=== PATIENT | female | born 1980 | race Caucasian/White ===

== ENCOUNTER 2017-05-13 12:58 | Emergency (ER) | payer OTHER ==
[~2017-05-13] VITALS: Ht 160 cm; Wt 85.0 kg
[2017-05-13 13:15] VITALS: BP 130/81; PULSE 92; O2SAT 99
--- NOTE | 2017-05-13 15:17 | ED.REPORT ---
HPI-Abd Pain F Under 40 Date of Service May 13, 2017 ED Provider: Darren Anna PA-C Joann is an otherwise healthy 36-year-old female presenting to the emergency department with chief complaint of vaginal bleeding. Patient reports intermittent but persistent vaginal bleeding for several months. Her current episode has been lasting approximately 3 weeks and is associated with mild crampy lower abdominal pain which patient states is similar to her typical menstrual pain. She reports using 3-4 pads per day. Denies fever, shaking chills, urinary symptoms, vaginal discharge. Patient reports delivering her second child by December 09. She had a Mirena IUD placed January 22. She has a primary care provider in [place], however she is in the area for the next 3 weeks, and was advised by her PCP in [place] to present to the emergency department for an ultrasound. Nursing Notes Stated Complaint: VAGINAL BLEEDINIG FOR MONTHS Chief Complaint: Female Abdominal Pain Nursing Notes Reviewed: Yes General Time Seen by MD: 14:47 Chief Complaint Vaginal bleeding Past Medical History Past Medical History Denies Review of Systems Review of Systems Note: Negative unless stated otherwise in history of present illness Physical Exam General: Well appearing, well developed, well nourished, no acute distress. Head: Atraumatic, normocephalic. Eyes: No conjunctival pallor. No scleral icterus or injection. No discharge. Vision grossly intact. ENT: Voice clear, hearing grossly intact. Respiratory: Regular rate and rhythm. Breath sounds present, clear to auscultation and equal bilaterally. No respiratory distress. No increased work of breathing, speaks in complete sentences. Cardiovascular: Regular rate and rhythm, without murmur, gallop or rub. No pedal edema. Gastrointestinal: Abdomen flat and non-tender without guarding or rebound. Bowel sounds normoactive. : Normal external genitalia without discharge, lesion, or masses. Normal- appearing cervix with IUD strings in place. Negative bleeding or discharge. Negative cervical motion tenderness or adnexal tenderness. Adnexa not appreciated on palpation. Examination performed with a tonguer. Skin: Warm and dry. Neurological: Grossly nonfocal. Psychological: Alert and oriented. Speech appropriate, linear and logical. Behavior appropriate. Initial Vital Signs Vital Signs (First) Date Time Temp Pulse Resp B/P Pulse Ox O2 Delivery O2 Flow Rate FiO2 05/13/17 13:15 36.9 92 130/81 99 Room Air 05/13/17 17:25 20 Normal Interpretation & Diagnostics Lab Results Interpretation Result Diagram: 05/13/17 1518 05/13/17 1518 Test 05/13/17 14:54 05/13/17 15:06 05/13/17 15:18 Urine Color Dark yellow (YELLOW) Urine Appearance Hazy (CLEAR,HAZY) Urine pH 6.5 (5.0-8.0) Urine Specific Mchenry 1.025 (1.003-1.035) Urine Protein 30mg/dL (NEG,TRACE) Urine Glucose (UA) Negativemg/dL (NEGATIVE) Urine Ketones Negativemg/dL (NEGATIVE) Urine Occult Blood Large (NEGATIVE) Urine Nitrite Negative (NEGATIVE) Urine Bilirubin Negative (NEGATIVE) Urine Urobilinogen 1.0mg/dL (NORMAL) Urine Leukocyte Esterase Negative (NEGATIVE) Urine RBC 11-50/hpf (0-2) Urine WBC 0-5/hpf (0-5) Urine Epithelial Cells None/hpf (NONE-MOD) Urine Crystals None seen (NONE SEEN) Urine Bacteria Few/hpf (NONE-FEW) Urine Hyaline Casts None/lpf (NONE) Urine Granular Casts None seen (NONE SEEN) Urine Waxy Casts None seen (NONE SEEN) Urine Red Blood Cell Casts None seen (NONE SEEN) Urine White Blood Cell Casts None seen (NONE SEEN) Urine Mucus None seen (None Seen) Urine Trichomonas None seen (NONE SEEN) Urine Yeast None (NONE SEEN) Urinalysis Comment None Urine Culture Reflexed Not indicated Hold Urine Received (Received) Hold Graf Top Tube Received (Received) White Blood Count 6.2th/mm3 (3.8-10.1) Red Blood Count 4.44mil/mm3 (3.90-5.20) Hemoglobin 12.3g/dL (12.0-15.6) Hematocrit 36.9% (35.0-46.0) Mean Corpuscular Volume 83.1fL (81-100) Mean Corpuscular Hemoglobin 27.7pg (27.0-35.0) Mean Corpuscular Hemoglobin Concent 33.3% (32.0-37.0) Red Cell Distribution Width 16.1% (12.3-15.4) Platelet Count 225bil/L (150-400) Neutrophils (%) (Auto) 55.9% (40-74) Lymphocytes (%) (Auto) 29.8% (14-46) Monocytes (%) (Auto) 8.9% (4-12) Eosinophils (%) (Auto) 4.7% (0-5) Basophils (%) (Auto) 0.5% (0-3) Prothrombin Time 9.6sec (8.1-12.5) Prothromb Time International Ratio 0.90ratio Activated Partial Thromboplast Time 26.0sec (22.8-33.0) Sodium Level 138mEq/L (134-144) Potassium Level 4.0mEq/L (3.5-5.2) Chloride Level 102mEq/L (97-108) Carbon Dioxide Level 24mmol/L (18-29) Blood Urea Nitrogen 12mg/dL (6-20) Creatinine 0.52mg/dL (0.57-1.00) Estimat Glomerular Filtration Rate 191mL/min (>59) Glucose Level 146mg/dL (60-99) Calcium Level 9.0mg/dL (8.5-10.1) Total Bilirubin 0.2mg/dL (0.0-1.2) Aspartate Amino Transf (AST/SGOT) 23U/L (0-50) Alanine Aminotransferase (ALT/SGPT) 19U/L (0-32) Alkaline Phosphatase 95U/L (25-150) Total Protein 7.2g/dL (6.4-8.4) Albumin 3.9g/dL (3.4-5.0) Re-Eval/Medical Decision Med Decision/Clinical Course Otherwise healthy 36 year old female presents with chief complaint of persistent vaginal bleeding over the last several months with lower abdominal cramping. Denies other symptoms. Symptoms began after the of her second child by and the placement of a Mirena IUD. Physical examination is generally benign, with normal vitals, soft abdomen. Pelvic exam is deferred. Pelvic ultrasound reveals the IUD in the cervix rather than the fundus according to the physical therapist technician. I discussed this with Dr. Barnes who advises removal of the IUD. This is performed, pelvic exam is otherwise normal. Examination performed with a tonguer. At this point I am reassured against ectopic , PID, tubo-ovarian abscess, gonorrhea/chlamydia, bacterial vaginosis, hemorrhage into the patient is stable and safe to go home. Advised regarding primary care follow-up, provided emergency return precautions. Patient verbalized understanding of, and consent to, the plan. Discharge & Departure Primary Impression: Vaginal bleeding Disposition: Home Discharge Condition Condition: Stable Patient Instructions: Dysfunctional Uterine Bleeding (ED) Additional Instructions: Evaluation in the emergency department for vaginal bleeding include interview, physical examination and ultrasound which revealed that your IUD is situated your cervix rather than in your uterus. I have removed this and expect this will cause your bleeding to taper off over the next few days. Be aware that you are not protected from at this time. Follow-up with your primary care provider when you get home to discuss having another IUD placed or alternative forms of control. Return to the emergency department for new or worsening symptoms including increasing bleeding, pain, fever. Referrals: NOPCP (PCP) EDSupervising Provider for APC: Zachary Barnes MD, Seth PA-C May 13, 2017 15:17
[2017-05-13 15:30] LABS: BASOPHILS % (AUTO) 0.5 % (0-3); EOSINOPHILS % (AUTO) 4.7 % (0-5); MONOCYTES % (AUTO) 8.9 % (4-12); Mean Corpuscular Hemoglobin 27.7 pg (27.0-35.0); Mean Corpuscular Volume 83.1 fL (81-100); NEUTROPHILS % (AUTO) 55.9 % (40-74); Platelet Count 225 bil/L (150-400)
[2017-05-13 15:46] LABS: INR 0.9 ratio
[2017-05-13 16:06] LABS: APPEARANCE,URINE HAZY (CLEAR,HAZY); COLOR,URINE DARK YELLOW (YELLOW); OCCULT BLOOD,URINE LARGE (NEGATIVE); PH,URINE 6.5 (5.0-8.0)
[2017-05-13 17:25] VITALS: BP 118/85; PULSE 83; RESP 20; O2SAT 98
--- NOTE | 2017-05-21 09:22 | DRSVH ---
PROCEDURE: US PELVIC SONOGRAM + TRANSVAGINAL SONOGRAM INDICATIONS: vaginal bleeding TECHNIQUE: Real-time scanning was performed of the pelvic organs, with image documentation. Additional endovagi nal scanning was necessary due to incomplete visualization of the adnexal and endometrial structures by transabdominal scanning. COMPARISON: None. FINDINGS: (orthogonal measurements) Uterus size: 4.04 cm Endometrium thickness: 2 mm Right ovary size: 2.69 cm, 3.82 cm, 2.34 cm Left ovary size: 3.60 cm, 1.49 cm, 3.07 cm Transabdominal scanning: Limited scanning through the kidneys shows no hydronephrosis. No pathologi c free abdominal or pelvic fluid. Endovaginal scanning: Uterus: Uterus is normal in size and appearance. Endometrium is within normal physiologic limits. Intrauterine device present positioned within the endocervical canal. Ovaries: Within normal physiologic limits. IMPRESSION: Intrauterine device abnormally positioned within the endocervical canal. Dr. Anna given results by the ammonia box operator at 1615 hrs. 05/13/2017. Dictated by: Parth ATKINSON Interpreted: Heath Martinez MD on 05/13/2017 at 16:48 Approved by: Heath Martinez M.D. on 05/21/2017 at 9:20
== END 2017-05-13 17:26 | disposition home or self-care (01) ==
LOC: SED 12:58
DX: N93.8 Other specified abnormal uterine and vaginal bleeding (principal); R10.9 Unspecified abdominal pain; Z97.5 Presence of (intrauterine) contraceptive device